=== PATIENT | female | born 1955 | race African-American/Black ===

== ENCOUNTER 2017-10-04 02:07 | Emergency (ER) | payer BC ==
[~2017-10-04] VITALS: Ht 154.9 cm; Wt 68.8 kg
[~2017-10-04 02:07] MED LIST: COREG12.5 M1 PO; LISINOPRIL10 MG PO; NITROSTAT0.4 MG SL; VITAMIN D250000 UNIT PO
[2017-10-04 02:38] LABS: HEMATOCRIT 37.8 % (36.0-46.0); HEMOGLOBIN 12.3 G/DL (11.9-15.5); MCHC 32.5 G/DL (30.0-36.0); MCV 92.2 FL (83-99); PLATELET COUNT 250 K/uL (156-360); RBC DIS.WIDTH-CV 12.6 % (11.8-14.6); RBC DIS.WIDTH-SD 43.1 % (39-53); WHITE BLOOD COUNT 7.5 K/uL (4.1-10.2)
[2017-10-04 02:49] LABS: CHLORIDE 106 mEq/L (99-109); POTASSIUM 4.2 mEq/L (3.7-5.4); SODIUM 142 mEq/L (136-147)
[2017-10-04 02:50] LABS: GLUCOSE 104 mg/dL (70-99)
[2017-10-04 02:54] LABS: CREATININE 0.8 mg/dL (0.6-1.3); GFR ESTIMATE (CALCULATED) > 59 mL/min/
[2017-10-04 02:55] LABS: UREA NITROGEN (BUN) 16 mg/dL (9-23)
[2017-10-04 02:59] LABS: TROP-I INTERPRETATION NEGATIVE; TROPONIN-I < 0.01 ng/mL (0.0-0.30)
[2017-10-04 04:23] LABS: TROP-I INTERPRETATION NEGATIVE; TROPONIN-I < 0.01 ng/mL (0.0-0.30)
[2017-10-04 05:18] VITALS: BP 1554/83
== END 2017-10-04 05:23 | disposition home or self-care (01) ==
LOC: EME 02:07
PROVIDERS: Emergency Medicine
DX: R07.89 Other chest pain (principal); I10 Essential (primary) hypertension; M32.9 Systemic lupus erythematosus, unspecified; Z88.5 Allergy status to narcotic agent
CPT/HCPCS: 71046; 80048; 84484; 85027; 93005; 99281; 99285